=== PATIENT | female | born 1970 | race Caucasian/White ===

== ENCOUNTER → 2016-11-16 | Outpatient (CLI) | payer BC ==
[2016-11-16 13:32] LABS: ALT/SGPT 28 U/L (12-78); BLOOD UREA NITROGEN 16 mg/dl (7-18); BUN/CREATININE RATIO 21.8 (10-20); CARBON DIOXIDE 30 mmol/L (21-32); CHLORIDE 107 mmol/L (98-107); CHOLESTEROL 175 mg/dl (0-200); CREATININE 0.72 mg/dl (0.60-1.20); GLUCOSE 98 mg/dl (70-99); POTASSIUM 3.9 mmol/L (3.5-5.1); SODIUM 143 mmol/L (136-145); TRIGLYCERIDES 127 mg/dl (0-150); VERY LOW DENSITY LIPOPROT CALC 25 mg/dl
[2016-11-16 13:35] LABS: HDL CHOLESTEROL 44 mg/dl
== END | disposition home or self-care (01) ==
LOC: C.LABMFLN 09:17
PROVIDERS: ATTEND Family Medicine
DX: E78.00 Pure hypercholesterolemia, unspecified (principal); I10 Essential (primary) hypertension

== ENCOUNTER → 2017-07-12 | Outpatient (CLI) | payer BC ==
[2017-07-12 13:11] LABS: BASO % 0.4 %; BASO ABS # 0.02 K/uL (0-0.2); COMPLETE YES; EOS % 1.4 %; HEMATOCRIT 43.6 % (37-47); IG% 0.2 %; LYMPH ABS # 1.48 K/uL (1.2-3.4); MEAN CELL VOLUME 86.5 fL (80-100); MEAN CORPUSCULAR HEMOGLOBIN 29.2 pg (25-34); MEAN CORPUSCULAR HGB CONC 33.7 g/dl (32-36); MEAN PLATELET VOLUME 11.2 fL (7.4-10.4); MONO % 6.3 %; NEUT % 65.7 %; PLATELET COUNT 196 K/uL (130-400); RED BLOOD COUNT 5.04 M/uL (4.2-5.4)
[2017-07-12 17:55] LABS: AMYLASE 33 U/L (25-115); BLOOD UREA NITROGEN 10 mg/dl (7-18); BUN/CREATININE RATIO 12.3 (10-20); CALCIUM 9.3 mg/dl (8.5-10.1); CARBON DIOXIDE 28 mmol/L (21-32); CHLORIDE 104 mmol/L (98-107); CREATININE 0.84 mg/dl (0.60-1.20); GLUCOSE 99 mg/dl (70-99); POTASSIUM 4.2 mmol/L (3.5-5.1); SODIUM 137 mmol/L (136-145)
[2017-07-12 18:00] LABS: ALB/GLOB RATIO 1.2 (0.9-2); ALKALINE PHOSPHATASE 48 U/L (45-117); ALT/SGPT 29 U/L (12-78); AST/SGOT 17 U/L (15-37)
== END | disposition home or self-care (01) ==
LOC: C.LABMFLN 10:03
PROVIDERS: ATTEND Family Medicine
DX: R10.11 Right upper quadrant pain (principal)

== ENCOUNTER → 2017-11-18 | Outpatient (CLI) | payer BC | END | disposition home or self-care (01) | LOC: C.LABMFLN 14:18 | PROVIDERS: ATTEND Family Medicine | DX: R19.7 Diarrhea, unspecified (principal) ==